=== PATIENT | male | born 1975 | race Caucasian/White ===

== ENCOUNTER 2017-11-30 19:48 | Emergency (ER) | payer OTHER ==
[2017-11-30 20:18] VITALS: BP 133/73
--- NOTE | 2017-11-30 21:16 | XRAY Report ---
Procedure Date: 11/30/2017 Accession Number: [id number] / [id number] Procedure: XR - Hand 3 View RT CPT Code: FULL RESULT: EXAM: RIGHT HAND RADIOGRAPHY EXAM DATE: 11/30/2017 08:59 PM. CLINICAL HISTORY: Dislocation right thumb/ pain/tenderness right thumb. COMPARISON: None. TECHNIQUE: 3 views. FINDINGS: Bones: Normal. No fractures or bone lesions. Joints: Normal. No subluxations. Soft Tissues: Mild swelling at the first carpometacarpal joint noted. IMPRESSION: 1. No fracture or malalignment. 2. Mild first carpometacarpal joint swelling. 3. If patient remains symptomatic, recommend follow up in 10-14 days. [facility]
== END 2017-11-30 21:30 | disposition left against medical advice (07) ==
LOC: ED 19:48
DX: Z53.21 Procedure and treatment not carried out due to patient leaving prior to being seen by health care provider (principal)